=== PATIENT | female | born 1960 | race Two or more races ===

== ENCOUNTER 2021-05-21 13:05 | Emergency (ER) | payer OTHER ==
[~2021-05-21] VITALS: Ht 160 cm; Wt 62.0 kg
[2021-05-21 14:07] VITALS: BP 136/68
[2021-05-21 14:45] LABS: MEAN CORPUSCULAR HGB CONC 32.7 g/dL (33.0-36.5)
[2021-05-21 14:47] LABS: HEMATOCRIT 40.9 % (35.0-45.0); HEMOGLOBIN 13.4 g/dl (12.0-16.0); MEAN CORPUSCULAR VOLUME 85.6 FL (78-98); MEAN PLATELET VOLUME 8.5 FL (7.4-10.4); PLATELET COUNT 320 X10'3 (140-440); RED BLOOD COUNT 4.78 X10'6 (4.20-5.60); RED CELL DISTRIBUTION WIDTH 13.5 % (11.5-14.5); WHITE BLOOD COUNT 7.7 X10'3 (4.5-11.0)
[2021-05-21 15:08] LABS: ALBUMIN 3.8 G/DL (3.4-5.0); ALKALINE PHOSPHATASE 87 IU/L (46-116); ANION GAP 8 (8-16); ASPARTATE AMINO TRANSFERASE 20 U/L (10-37); BILIRUBIN,TOTAL 0.1 MG/DL (0.1-1.0); BLOOD UREA NITROGEN 7 MG/DL (7-18); BUN/CREATININE RATIO 7.7 (6.6-38.0); CALCIUM 8.5 MG/DL (8.5-10.1); CHLORIDE 107 MMOL/L (99-107); CREATININE 0.91 MG/DL (0.40-0.90); GLUCOSE 101 MG/DL (70-104); POTASSIUM 4.1 MMOL/L (3.5-5.1); SODIUM 143 MMOL/L (135-145); TOTAL CARBON DIOXIDE 28.3 MMOL/L (24-32); TOTAL PROTEIN 7.8 G/DL (6.4-8.2); eGFR 63 ML/MIN
[2021-05-21 15:19] LABS: ALANINE AMINOTRANSFERASE 22 U/L (12-78)
[2021-05-21 15:21] LABS: PLATELET ESTIMATE NORMAL; TOTAL CELLS COUNTED 100
== END 2021-05-21 18:25 | disposition home or self-care (01) ==
LOC: ER 13:06
DX: R07.89 Other chest pain (principal); M94.0 Chondrocostal junction syndrome [Tietze]
CPT/HCPCS: 36415; 71045; 80053; 83880; 84484; 85007; 85025; 93005; 99285

== ENCOUNTER 2021-05-27 10:39 | Outpatient (CLI) | payer OTHER | END 2021-05-27 23:59 | disposition home or self-care (01) | LOC: U 10:39 | PROVIDERS: ATTEND Internal Medicine Infectious Disease | DX: Z20.822 Contact with and (suspected) exposure to COVID-19 (principal) | CPT/HCPCS: 36415; U0003; U0005 ==

== ENCOUNTER 2022-08-22 15:29 | Inpatient (IN) | payer MEDICAID, OTHER ==
[~2022-08-22] VITALS: Ht 161.3 cm; Wt 77.7 kg
[2022-08-22] VITALS (23 sets, daily range): BP systolic 70–139; BP diastolic 34–77
[2022-08-22 17:23] LABS: BASOPHILS # (AUTO) 0.1 X10'3 (0-0.2); BASOPHILS % (AUTO) 0.2 % (0-1); EOSINOPHILS # (AUTO) 0.2 X10'3 (0-0.9); EOSINOPHILS % (AUTO) 0.5 % (0-6); HEMOGLOBIN 12.4 g/dl (12.0-16.0); LYMPHOCYTES # (AUTO) 0.6 X10'3 (1.1-4.8); LYMPHOCYTES % (AUTO) 1.5 % (21-51); MEAN CORPUSCULAR HEMOGLOBIN 27.9 PG (27.0-31.0); MEAN CORPUSCULAR HGB CONC 32.6 g/dL (33.0-36.5); MEAN CORPUSCULAR VOLUME 85.5 FL (78-98); MEAN PLATELET VOLUME 10.1 FL (7.4-10.4); MONOCYTES # (AUTO) 1.5 X10'3 (0-0.9); MONOCYTES % (AUTO) 3.5 % (2-12); NEUTROPHILS % (AUTO) 94.3 % (42-75); PLATELET COUNT 128 X10'3 (140-440); RED BLOOD COUNT 4.44 X10'6 (4.20-5.60); RED CELL DISTRIBUTION WIDTH 13.5 % (11.5-14.5)
[2022-08-22 17:26] LABS: WHITE BLOOD COUNT 42.4 X10'3 (4.5-11.0)
[2022-08-22] MEDS ORDERED: normal saline 1000ML IV soln IV ONE (17:30)
[2022-08-22 17:34] LABS: ALANINE AMINOTRANSFERASE 31 U/L (12-78); ALBUMIN 2.7 G/DL (3.4-5.0); ALBUMIN/GLOBULIN RATIO 0.6 (1.1-1.5); ALKALINE PHOSPHATASE 114 IU/L (46-116); ANION GAP 13 (8-16); ASPARTATE AMINO TRANSFERASE 43 U/L (10-37); BILIRUBIN,TOTAL 0.6 MG/DL (0.1-1.0); BLOOD UREA NITROGEN 41 MG/DL (7-18); BUN/CREATININE RATIO 9.3 (6.6-38.0); CALCIUM 8.2 MG/DL (8.5-10.1); CHLORIDE 98 MMOL/L (99-107); CREATININE 4.43 MG/DL (0.40-0.90); GLUCOSE 105 MG/DL (70-104); POTASSIUM 3.8 MMOL/L (3.5-5.1); SODIUM 136 MMOL/L (135-145); TOTAL CARBON DIOXIDE 25.1 MMOL/L (24-32); TOTAL PROTEIN 7.1 G/DL (6.4-8.2); eGFR 10 ML/MIN
[2022-08-22] MEDS ORDERED: ondansetron/PF 4mg/2ml inj IV ONE (17:40)
[2022-08-22 17:43] LABS: TOTAL CELLS COUNTED 100
[2022-08-22 17:45] LABS: PLATELET ESTIMATE DECREASED
[2022-08-22] MEDS: morphine 4 MG/ML inj SYRINge IV ONE ×2 (17:55→18:09)
[2022-08-22] MEDS ORDERED: CefTRIAXone 2gm/D5W 50ml BAG 50 ML IV ONE (17:55)
[2022-08-22] MEDS ORDERED: iohexol 300 MG/1 ML 50ml polymer ONE (18:49)
[2022-08-22] MEDS ORDERED: fentaNYL/PF 50MCG/1 ML 2ML syringe ONE (19:05)
[2022-08-22] MEDS ORDERED: midazolam 1 mg/ML 2ml injection ONE (19:05)
[2022-08-22] MEDS ORDERED: rocuronium 10mg/ml inj IV ONE (19:16)
[2022-08-22] MEDS ORDERED: etomidate 2mg/ml inj. ONE (19:16)
[2022-08-22] MEDS ORDERED: LIDOcaine 2% (20mg/ml) 5ml vial ONE (19:16)
[2022-08-22] MEDS ORDERED: sugammadex 200mg/2ml injection IV ONE (19:30)
[2022-08-22] MEDS ORDERED: ondansetron/PF 4mg/2ml inj ONE (19:37)
[2022-08-22] MEDS ORDERED: dexamethasone sod phosphate 4mg/ml inj. ONE (19:37)
[2022-08-22] MEDS ORDERED: meperidine/PF 25mg/ml syringe ONE (19:43)
[2022-08-22] MEDS ORDERED: meperidine/PF 25mg/ml syringe IV PRN ×3 (19:50)
[2022-08-22] MEDS ORDERED: acetaminophen 1,000mg/100ml IV 100 ML IV ONE (19:50)
[2022-08-22] MEDS ORDERED: morphine 4 MG/ML inj SYRINge IV PRN (19:50)
[2022-08-22] MEDS ORDERED: ondansetron/PF 4mg/2ml inj IV PRN (19:50)
[2022-08-22] MEDS ORDERED: ringers solution, lacted 1,000 ML IV SCH (19:50)
[2022-08-22] MEDS ORDERED: proCHLORperazine 10 MG/2 ml inj IV PRN (19:50)
[2022-08-22] MEDS ORDERED: morphine 2 MG/ML inj. syringe IV PRN (19:50)
[2022-08-22] MEDS ORDERED: potassium Cl 40MEQ/1/2NS 520ml 520 ML IV PRN (20:05)
[2022-08-22] MEDS ORDERED: potassium Cl 20 mEq SR tablet PO PRN (20:05)
[2022-08-22] MEDS ORDERED: magnesium 4gm in 100ml NS 100 ML IV PRN (20:05)
[2022-08-22] MEDS ORDERED: acetaminophen 325mg tablet PO PRN (20:05)
[2022-08-22] MEDS ORDERED: mag hydrox/Alum hydrox/simeth 30ml oral suspension PO PRN (20:05)
[2022-08-22] MEDS ORDERED: magnesium hydroxide 30ml (MOM) UD suspension PO PRN (20:05)
--- NOTE | 2022-08-22 20:08 | NUR ---
Received from OR via BED, accompanied by Anesthesiologist DR KENDRICK and report given by Anesthesiologist AND STEP DOWN NURSE. PT DROWSY AND MOANING, SHIVERING, 25 MG IV DEMEROL GIVEN PER DR KENDRICK ORDERS W/IMPROVEMENT IN SHIVERING, PT AWAKENS TO NAME, DENIES PAIN. Addendum: 08/22/22 at 2015 by Shital Arroyo RN Amended: Links added.
--- NOTE | 2022-08-22 20:50 | NUR ---
Patient arrived to room 356B after I had received report from Shital MOLINA from the recovery room.
--- NOTE | 2022-08-22 20:53 | NUR ---
Report called to receiving nurse. Transferred via BED W/2 BAGS OF Belongings, RECEIVING RN AT BEDSIDE TO RECEIVE PT, BLL, CALL LIGHT GIVEN, SIDE RAILS UP X 2. Special Issues communicated to receiving nurse. YES. Addendum: 08/22/22 at 2102 by Shital Arroyo RN Amended: Links added.
[2022-08-22] MEDS: normal saline 1000ml 1,000 ML IV SCH (21:10)
[2022-08-22] MEDS: HYDROmorphone inj. 0.5 MG/0.5 ML DISP.SYRIN IV PRN (22:43)
[2022-08-22] MEDS ORDERED: normal saline 1000ml 1,000 ML IVB ONE (23:05)
[2022-08-22] MEDS ORDERED: TRAM50TA2 PO (23:40)
[2022-08-22] MEDS ORDERED: AMLO10TA13 PO (23:40)
[2022-08-23] VITALS (18 sets, daily range): BP systolic 67–108; BP diastolic 35–50
[2022-08-23] MEDS: normal saline 1000ml 1,000 ML IV SCH ×5 (00:08→21:12)
--- NOTE | 2022-08-23 01:00 | NUR ---
I had notified Dr. Martin a couple of times that pt had not voided yet and informed him of how much fluid she had infused.
--- NOTE | 2022-08-23 01:30 | NUR ---
Spoke to Dr. Martin again regarding pt's low b/p and not responding to fluid boluses, we did manual b/p on the right and left per Dr. Martin's request and the map was still <60 so he gave orders to infuse another 1 liter saline bolus and then he is going to write orders to transfer her to PCU for special medication to keep her b/p up.
[2022-08-23] MEDS ORDERED: normal saline 1000ml 1,000 ML IVB ONE ×3 (01:40→11:30)
[2022-08-23] MEDS ORDERED: DOBUTamine-DoBUTrex 500mg/D5W 250 ML IV SCH (01:50)
--- NOTE | 2022-08-23 02:02 | NUR ---
no void yet Addendum: 08/23/22 at 0221 by Mariposa Cochran RN Amended: Links added.
--- NOTE | 2022-08-23 02:10 | NUR ---
Transferred to U 3027A due to low blood pressure and needing special medication to keep her b/p up. I gave report over the phone to Laura Martines RN. Patient remained fatigued but no shortness of breath and heart rate in the low 100's, 105-107 and is on tele unit being monitored. All her belongings went with patient in bags and left in the room in the closet in 3027A and I left her purse with phone in the bed with pt per her request.
--- NOTE | 2022-08-23 02:20 | NUR ---
Bedside report from Mariposa Martines RN
--- NOTE | 2022-08-23 03:43 | NUR ---
manual pressure left arm-68/38, retook bp 70/40. MD Martin contacted for further orders by specialty molder.
--- NOTE | 2022-08-23 05:11 | NUR ---
3029I-VTIO MANZANARES-GFR 10, CREATININE 4.43-MANUAL 74/38, BLADDER SCAN 217 ML-PLEASE ADVISE. JOB [id number]
--- NOTE | 2022-08-23 06:32 | NUR ---
Problems reprioritized. Patient report given, questions answered & plan of care reviewed with Rebecca MOLINA.
--- NOTE | 2022-08-23 06:36 | NUR ---
Patient in room PCU 3027. I have received report from JESSE Alvares and had the opportunity to ask questions and assume patient care.
[2022-08-23 06:40] LABS: BASOPHILS # (AUTO) 0.1 X10'3 (0-0.2); BASOPHILS % (AUTO) 0.2 % (0-1); EOSINOPHILS # (AUTO) 0.1 X10'3 (0-0.9); EOSINOPHILS % (AUTO) 0.4 % (0-6); HEMATOCRIT 30.3 % (35.0-45.0); HEMOGLOBIN 9.9 g/dl (12.0-16.0); LYMPHOCYTES # (AUTO) 0.3 X10'3 (1.1-4.8); LYMPHOCYTES % (AUTO) 0.8 % (21-51); MEAN CORPUSCULAR HEMOGLOBIN 28.2 PG (27.0-31.0); MEAN CORPUSCULAR HGB CONC 32.6 g/dL (33.0-36.5); MEAN CORPUSCULAR VOLUME 86.7 FL (78-98); MEAN PLATELET VOLUME 10.9 FL (7.4-10.4); MONOCYTES # (AUTO) 0.6 X10'3 (0-0.9); MONOCYTES % (AUTO) 1.7 % (2-12); NEUTROPHILS % (AUTO) 96.9 % (42-75); PLATELET COUNT 66 X10'3 (140-440); RED CELL DISTRIBUTION WIDTH 13.5 % (11.5-14.5)
--- NOTE | 2022-08-23 06:40 | NUR ---
Problems reprioritized. Patient report given, questions answered & plan of care reviewed with ALICIA COSMETIC ACCOUNT COORDINATOR.
[2022-08-23 07:05] LABS: ALANINE AMINOTRANSFERASE 20 U/L (12-78); ALBUMIN 1.7 G/DL (3.4-5.0); ALBUMIN/GLOBULIN RATIO 0.5 (1.1-1.5); ALKALINE PHOSPHATASE 164 IU/L (46-116); ANION GAP 14 (8-16); ASPARTATE AMINO TRANSFERASE 39 U/L (10-37); BILIRUBIN,TOTAL 0.7 MG/DL (0.1-1.0); BLOOD UREA NITROGEN 42 MG/DL (7-18); BUN/CREATININE RATIO 11.1 (6.6-38.0); CALCIUM 6.6 MG/DL (8.5-10.1); CHLORIDE 106 MMOL/L (99-107); GLUCOSE 111 MG/DL (70-104); MAGNESIUM 1.8 MG/DL (1.5-2.4); POTASSIUM 3.1 MMOL/L (3.5-5.1); SODIUM 139 MMOL/L (135-145); TOTAL CARBON DIOXIDE 19.3 MMOL/L (24-32); eGFR 12 ML/MIN
--- NOTE | 2022-08-23 07:23 | NUR ---
Patient in room CICU 2009. I have received report from Dia MOLINA, patient transferring to CICU shortly and had the opportunity to ask questions and assume patient care.
--- NOTE | 2022-08-23 07:24 | NUR ---
Patient transferring to CICU per Dr. Bates. All belongings collected and sent with patient to 2009. Wheeled to CICU via nursing staff.
[2022-08-23 07:35] LABS: WHITE BLOOD COUNT 37.2 X10'3 (4.5-11.0)
[2022-08-23 07:39] LABS: LARGE PLATELETS FEW; PLATELET ESTIMATE DECREASED; TOTAL CELLS COUNTED 100
[2022-08-23] MEDS: K and/or MAG REPLACEMENT MC SCH ×2 (07:45→18:34)
[2022-08-23] MEDS: heparin, porcine 5000 units/ml vial SQ SCH ×2 (07:53→18:33)
[2022-08-23] MEDS: piperacillin/tazo 3.375gm/50ml 50 ML IV SCH ×2 (07:54→19:32)
[2022-08-23] MEDS: docusate sod 100mg capsule PO SCH ×2 (07:54→19:32)
[2022-08-23] MEDS: potassium Cl 20 mEq SR tablet PO PRN ×3 (07:54→19:32)
[2022-08-23] MEDS ORDERED: CefTRIAXone/D5W-Rocephin 1gm 50 ML IV SCH (08:00)
--- NOTE | 2022-08-23 12:00 | NUR ---
Round note: Dr. Bates stated to give the patient another 1L bolus of NS and then to continue the NS @ 200. Per Dr. Bates patient can transfer back to PCU with tele.
--- NOTE | 2022-08-23 13:00 | NUR ---
Problems reprioritized. Patient report given, questions answered & plan of care reviewed with JESSE Madrigal.
--- NOTE | 2022-08-23 13:55 | NUR ---
Patient transferred to room 3013 A via wheelchair with primary RN. Skin check done with receiving RN. Patient belongings (2 jackets, 2 shirts, bra, underwear, pants, shoes, purse, and cell phone) all left with patient.
[2022-08-23] MEDS: HYDROmorphone inj. 0.5 MG/0.5 ML DISP.SYRIN IV PRN (16:19)
[2022-08-23] MEDS: ondansetron/PF 4mg/2ml inj IV PRN (16:19)
--- NOTE | 2022-08-23 18:50 | NUR ---
Problems reprioritized. Patient report given, questions answered & plan of care reviewed with Jennifer Wall, patient stable at transfer of care.
[2022-08-23] MEDS: HYDROmorphone 1 mg/ml syringe IV PRN (21:13)
[2022-08-24 02:00] VITALS: BP 88/47
[2022-08-24] MEDS: normal saline 1000ml 1,000 ML IV SCH ×4 (02:05→23:39)
[2022-08-24] MEDS: HYDROmorphone 1 mg/ml syringe IV PRN (04:50)
[2022-08-24 06:00] VITALS: BP 102/58
--- NOTE | 2022-08-24 06:34 | NUR ---
Problems reprioritized. Patient report given, questions answered & plan of care reviewed with JESSE Ambrose.
--- NOTE | 2022-08-24 06:46 | NUR ---
Patient in room PCU 3013. I have received report from Jennifer Novak and had the opportunity to ask questions and assume patient care.
[2022-08-24] MEDS: docusate sod 100mg capsule PO SCH ×2 (08:00→20:00)
[2022-08-24] MEDS: heparin, porcine 5000 units/ml vial SQ SCH ×2 (08:00→20:00)
[2022-08-24] MEDS: K and/or MAG REPLACEMENT MC SCH ×2 (08:00→20:00)
[2022-08-24 09:26] LABS: BASOPHILS % (AUTO) 0.1 % (0-1); EOSINOPHILS # (AUTO) 0.4 X10'3 (0-0.9); EOSINOPHILS % (AUTO) 0.9 % (0-6); HEMATOCRIT 32.6 % (35.0-45.0); HEMOGLOBIN 10.6 g/dl (12.0-16.0); LYMPHOCYTES # (AUTO) 0.6 X10'3 (1.1-4.8); LYMPHOCYTES % (AUTO) 1.3 % (21-51); MEAN CORPUSCULAR HEMOGLOBIN 27.9 PG (27.0-31.0); MEAN CORPUSCULAR HGB CONC 32.4 g/dL (33.0-36.5); MEAN PLATELET VOLUME 11.7 FL (7.4-10.4); MONOCYTES % (AUTO) 2.4 % (2-12); NEUTROPHILS # (AUTO) 42.1 X10'3 (1.8-7.7); NEUTROPHILS % (AUTO) 95.3 % (42-75); RED BLOOD COUNT 3.79 X10'6 (4.20-5.60); RED CELL DISTRIBUTION WIDTH 13.7 % (11.5-14.5)
[2022-08-24 09:42] LABS: WHITE BLOOD COUNT 44.2 X10'3 (4.5-11.0)
[2022-08-24] MEDS: piperacillin/tazo 3.375gm/50ml 50 ML IV SCH (09:49)
[2022-08-24 09:53] LABS: ALANINE AMINOTRANSFERASE 22 U/L (12-78); ALBUMIN 1.7 G/DL (3.4-5.0); ALBUMIN/GLOBULIN RATIO 0.5 (1.1-1.5); ALKALINE PHOSPHATASE 136 IU/L (46-116); ANION GAP 9 (8-16); ASPARTATE AMINO TRANSFERASE 30 U/L (10-37); BILIRUBIN,TOTAL 0.4 MG/DL (0.1-1.0); BLOOD UREA NITROGEN 35 MG/DL (7-18); BUN/CREATININE RATIO 18.5 (6.6-38.0); CALCIUM 7.8 MG/DL (8.5-10.1); CHLORIDE 114 MMOL/L (99-107); CREATININE 1.89 MG/DL (0.40-0.90); GLUCOSE 95 MG/DL (70-104); MAGNESIUM 1.9 MG/DL (1.5-2.4); POTASSIUM 4.1 MMOL/L (3.5-5.1); SODIUM 143 MMOL/L (135-145); TOTAL CARBON DIOXIDE 19.8 MMOL/L (24-32); TOTAL PROTEIN 5.3 G/DL (6.4-8.2); eGFR 27 ML/MIN
[2022-08-24 10:08] LABS: PLATELET COUNT 57 X10'3 (140-440)
[2022-08-24 10:10] LABS: PLATELET ESTIMATE DECREASED; TOTAL CELLS COUNTED 100; TOXIC GRANULATION 1+
[2022-08-24 10:30] VITALS: BP 110/61
--- NOTE | 2022-08-24 12:59 | NUR ---
PAGER ID: [phone] MESSAGE: Re: Ricky in [id number], pt requesting ultram, not dilaudid and PT requesting new order to see her, please advise Halie [phone]
[2022-08-24] MEDS: ondansetron/PF 4mg/2ml inj IV PRN ×2 (13:30→20:53)
[2022-08-24 14:00] VITALS: BP 106/57
[2022-08-24] MEDS: meropenem inj 1 GM in normal saline 100ml IV soln 100 ML IV SCH (16:02)
--- NOTE | 2022-08-24 16:16 | NUR ---
Student documentation: I have reviewed and agree with all interventions, medication administration per hospital policy and assessments performed and documented by .
[2022-08-24 18:00] VITALS: BP 112/53
--- NOTE | 2022-08-24 18:24 | NUR ---
Problems reprioritized. Patient report given, questions answered & plan of care reviewed with Leslye Motta
[2022-08-24] MEDS ORDERED: loperamide 2mg capsule PO PRN (19:55)
[2022-08-24] MEDS: traMADol 50MG tablet PO PRN (20:52)
[2022-08-24 22:00] VITALS: BP 110/56
[2022-08-25] MEDS: meropenem inj 1 GM in normal saline 100ml IV soln 100 ML IV SCH ×3 (01:01→16:33)
[2022-08-25 02:00] VITALS: BP 111/60
[2022-08-25 06:00] VITALS: BP 130/67
[2022-08-25 06:53] LABS: BASOPHILS # (AUTO) 0.1 X10'3 (0-0.2); BASOPHILS % (AUTO) 0.4 % (0-1); EOSINOPHILS % (AUTO) 0.1 % (0-6); HEMATOCRIT 34.1 % (35.0-45.0); HEMOGLOBIN 11.1 g/dl (12.0-16.0); LYMPHOCYTES # (AUTO) 0.8 X10'3 (1.1-4.8); LYMPHOCYTES % (AUTO) 2.4 % (21-51); MEAN CORPUSCULAR HEMOGLOBIN 27.7 PG (27.0-31.0); MEAN CORPUSCULAR HGB CONC 32.5 g/dL (33.0-36.5); MEAN CORPUSCULAR VOLUME 85.3 FL (78-98); MEAN PLATELET VOLUME 10.2 FL (7.4-10.4); MONOCYTES # (AUTO) 1.4 X10'3 (0-0.9); MONOCYTES % (AUTO) 4.4 % (2-12); NEUTROPHILS # (AUTO) 29.7 X10'3 (1.8-7.7); NEUTROPHILS % (AUTO) 92.7 % (42-75); RED CELL DISTRIBUTION WIDTH 13.9 % (11.5-14.5)
[2022-08-25 07:08] LABS: ALANINE AMINOTRANSFERASE 25 U/L (12-78); ALBUMIN 1.6 G/DL (3.4-5.0); ALBUMIN/GLOBULIN RATIO 0.5 (1.1-1.5); ALKALINE PHOSPHATASE 172 IU/L (46-116); ANION GAP 11 (8-16); ASPARTATE AMINO TRANSFERASE 31 U/L (10-37); BILIRUBIN,TOTAL 0.6 MG/DL (0.1-1.0); BLOOD UREA NITROGEN 25 MG/DL (7-18); BUN/CREATININE RATIO 18.4 (6.6-38.0); CALCIUM 7.8 MG/DL (8.5-10.1); CHLORIDE 110 MMOL/L (99-107); CREATININE 1.36 MG/DL (0.40-0.90); GLUCOSE 77 MG/DL (70-104); MAGNESIUM 1.9 MG/DL (1.5-2.4); POTASSIUM 3.4 MMOL/L (3.5-5.1); SODIUM 140 MMOL/L (135-145); TOTAL CARBON DIOXIDE 19.2 MMOL/L (24-32); eGFR 39 ML/MIN
[2022-08-25 07:11] LABS: WHITE BLOOD COUNT 32.1 X10'3 (4.5-11.0)
[2022-08-25 07:12] LABS: PLATELET COUNT 45 X10'3 (140-440)
--- NOTE | 2022-08-25 07:36 | NUR ---
Patient in room PCU 3013. I have received report from Rajeev and had the opportunity to ask questions and assume patient care.
[2022-08-25 07:44] LABS: LARGE PLATELETS FEW; PLATELET ESTIMATE DECREASED
[2022-08-25] MEDS: docusate sod 100mg capsule PO SCH ×2 (08:00→20:00)
[2022-08-25] MEDS: heparin, porcine 5000 units/ml vial SQ SCH ×2 (08:00→20:00)
[2022-08-25] MEDS: K and/or MAG REPLACEMENT MC SCH ×2 (08:00→20:00)
--- NOTE | 2022-08-25 08:06 | NUR ---
PAGER ID: [phone] MESSAGE: RE: Ricky 3013A, plt 45, WBC 32.1, amara Ambrose
[2022-08-25] MEDS: traMADol 50MG tablet PO PRN ×3 (08:44→22:30)
[2022-08-25] MEDS: potassium Cl 20 mEq SR tablet PO PRN ×3 (08:44→16:58)
[2022-08-25] MEDS: normal saline 1000ml 1,000 ML IV SCH ×2 (08:44→21:04)
[2022-08-25 10:30] VITALS: BP 114/68
[2022-08-25 15:39] LABS: CLARITY,URINE CLOUDY (Clear); GLUCOSE, URINE NEGATIVE (Neg); KETONES,URINE 15 mg/dl (Neg); LEUKOCYTE ESTERASE ,URINE SMALL (Neg); NITRITES, URINE NEGATIVE (Neg); OCCULT BLOOD,URINE LARGE (Neg); PROTEIN,URINE 30 mg/dl (Neg); UROBILINOGEN,URINE 0.2 E.U/dL (0.2-1.0)
[2022-08-25 15:57] LABS: UA COLLECTION TYPE CLN CATCH MIDSTREAM
[2022-08-25 15:58] LABS: COLOR,URINE DARK YELLOW (Yellow)
[2022-08-25 16:00] LABS: BACTERIA,URINE FEW /HPF (Neg); RBC,URINE TNTC /HPF (0-2); SQUAMOUS EPITHELIAL CELL,UR FEW /LPF (FEW); WBC CLUMPS,URINE FEW /HPF (NEGATIVE)
[2022-08-25 18:00] VITALS: BP 122/58
--- NOTE | 2022-08-25 18:43 | NUR ---
Problems reprioritized. Patient report given, questions answered & plan of care reviewed with Jennifer Villarreal
[2022-08-25 22:00] VITALS: BP 115/61
[2022-08-26] MEDS: ceFAZolin/D5W- 1GM premix 50 ML IV SCH ×3 (01:27→16:42)
[2022-08-26 02:00] VITALS: BP 114/60
[2022-08-26] MEDS: normal saline 1000ml 1,000 ML IV SCH ×2 (05:39→15:39)
[2022-08-26 06:00] VITALS: BP 103/49
[2022-08-26 06:36] LABS: BASOPHILS % (AUTO) 0.1 % (0-1); EOSINOPHILS # (AUTO) 0.2 X10'3 (0-0.9); EOSINOPHILS % (AUTO) 0.7 % (0-6); HEMATOCRIT 33.6 % (35.0-45.0); HEMOGLOBIN 11.2 g/dl (12.0-16.0); LYMPHOCYTES % (AUTO) 4.3 % (21-51); MEAN CORPUSCULAR HEMOGLOBIN 27.9 PG (27.0-31.0); MEAN CORPUSCULAR HGB CONC 33.3 g/dL (33.0-36.5); MEAN CORPUSCULAR VOLUME 83.9 FL (78-98); MEAN PLATELET VOLUME 9.7 FL (7.4-10.4); MONOCYTES # (AUTO) 2.1 X10'3 (0-0.9); MONOCYTES % (AUTO) 8.7 % (2-12); NEUTROPHILS # (AUTO) 20.8 X10'3 (1.8-7.7); NEUTROPHILS % (AUTO) 86.2 % (42-75); RED BLOOD COUNT 4.01 X10'6 (4.20-5.60); RED CELL DISTRIBUTION WIDTH 13.9 % (11.5-14.5); WHITE BLOOD COUNT 24.1 X10'3 (4.5-11.0)
[2022-08-26 06:43] LABS: PLATELET COUNT 40 X10'3 (140-440)
--- NOTE | 2022-08-26 06:47 | NUR ---
Mrs García has critical Plt of 40. I called Night MD at [phone] attempted to leave message and it was full. I will inform Day MD MANNING. Pt is A/O X3 in no apparent distress and in bed locked, lowered with call light in reach. Will continue to monitor. I received report from JESSE Rodriguez.
[2022-08-26 06:51] LABS: ALANINE AMINOTRANSFERASE 21 U/L (12-78); ALBUMIN 1.4 G/DL (3.4-5.0); ALBUMIN/GLOBULIN RATIO 0.4 (1.1-1.5); ALKALINE PHOSPHATASE 126 IU/L (46-116); ANION GAP 5 (8-16); ASPARTATE AMINO TRANSFERASE 24 U/L (10-37); BILIRUBIN,TOTAL 0.5 MG/DL (0.1-1.0); BLOOD UREA NITROGEN 19 MG/DL (7-18); BUN/CREATININE RATIO 17.8 (6.6-38.0); CALCIUM 7.7 MG/DL (8.5-10.1); CHLORIDE 110 MMOL/L (99-107); CREATININE 1.07 MG/DL (0.40-0.90); GLUCOSE 95 MG/DL (70-104); MAGNESIUM 1.5 MG/DL (1.5-2.4); POTASSIUM 3.8 MMOL/L (3.5-5.1); SODIUM 137 MMOL/L (135-145); TOTAL CARBON DIOXIDE 21.8 MMOL/L (24-32); TOTAL PROTEIN 4.7 G/DL (6.4-8.2); eGFR 52 ML/MIN
--- NOTE | 2022-08-26 07:49 | NUR ---
messaged PAGER ID: [phone] MESSAGE: KATHERIN RM. [id number] Ricky, Critical PLT 40 trending down from 45. Heparin will be held Jemima MOLINA PCU [id number]
[2022-08-26] MEDS ORDERED: meropenem inj 1 GM in normal saline 100ml IV soln 100 ML IV SCH (08:00)
[2022-08-26] MEDS: docusate sod 100mg capsule PO SCH ×2 (08:00→19:31)
[2022-08-26] MEDS: K and/or MAG REPLACEMENT MC SCH ×2 (08:00→19:08)
[2022-08-26 08:02] VITALS: BP 103/49
[2022-08-26] MEDS: traMADol 50MG tablet PO PRN ×2 (12:12→21:07)
[2022-08-26] MEDS: fondaparinux 2.5 MG/0.5 ML syringe SUBCUT SCH (14:15)
[2022-08-26 18:00] VITALS: BP 121/62
[2022-08-26] MEDS: ondansetron/PF 4mg/2ml inj IV PRN (20:29)
[2022-08-26 22:00] VITALS: BP 111/51
[2022-08-27] MEDS: ceFAZolin/D5W- 1GM premix 50 ML IV SCH ×3 (00:08→16:54)
[2022-08-27] MEDS: normal saline 1000ml 1,000 ML IV SCH ×3 (00:13→16:59)
[2022-08-27 06:00] VITALS: BP 134/50
[2022-08-27 07:24] LABS: BASOPHILS % (AUTO) 0.1 % (0-1); EOSINOPHILS # (AUTO) 0.3 X10'3 (0-0.9); EOSINOPHILS % (AUTO) 1.4 % (0-6); HEMATOCRIT 30.8 % (35.0-45.0); HEMOGLOBIN 10.2 g/dl (12.0-16.0); LYMPHOCYTES # (AUTO) 1.3 X10'3 (1.1-4.8); LYMPHOCYTES % (AUTO) 5.5 % (21-51); MEAN CORPUSCULAR HEMOGLOBIN 27.8 PG (27.0-31.0); MEAN CORPUSCULAR VOLUME 84.3 FL (78-98); MEAN PLATELET VOLUME 10.3 FL (7.4-10.4); MONOCYTES % (AUTO) 8.3 % (2-12); NEUTROPHILS # (AUTO) 20.4 X10'3 (1.8-7.7); NEUTROPHILS % (AUTO) 84.7 % (42-75); PLATELET COUNT 63 X10'3 (140-440); RED BLOOD COUNT 3.66 X10'6 (4.20-5.60); RED CELL DISTRIBUTION WIDTH 13.4 % (11.5-14.5); WHITE BLOOD COUNT 24.1 X10'3 (4.5-11.0)
[2022-08-27 07:39] LABS: ALANINE AMINOTRANSFERASE 18 U/L (12-78); ALBUMIN 1.5 G/DL (3.4-5.0); ALBUMIN/GLOBULIN RATIO 0.5 (1.1-1.5); ALKALINE PHOSPHATASE 117 IU/L (46-116); ANION GAP 6 (8-16); ASPARTATE AMINO TRANSFERASE 30 U/L (10-37); BILIRUBIN,TOTAL 0.5 MG/DL (0.1-1.0); BLOOD UREA NITROGEN 15 MG/DL (7-18); CALCIUM 7.6 MG/DL (8.5-10.1); CHLORIDE 108 MMOL/L (99-107); GLUCOSE 122 MG/DL (70-104); MAGNESIUM 1.6 MG/DL (1.5-2.4); POTASSIUM 3.4 MMOL/L (3.5-5.1); SODIUM 139 MMOL/L (135-145); TOTAL CARBON DIOXIDE 25.3 MMOL/L (24-32); TOTAL PROTEIN 4.7 G/DL (6.4-8.2); eGFR 56 ML/MIN
[2022-08-27] MEDS: docusate sod 100mg capsule PO SCH ×2 (08:00→19:39)
[2022-08-27] MEDS: K and/or MAG REPLACEMENT MC SCH ×2 (08:00→19:39)
[2022-08-27 08:11] LABS: ANISOCYTOSIS 1+; PLATELET ESTIMATE DECREASED; TOTAL CELLS COUNTED 100
--- NOTE | 2022-08-27 08:16 | NUR ---
Initial: Pt admitted w/ septic shock secondary to pyelonephritis per EMR. Currently on Sodium Restricted diet w/ mostly 0-25% intake of meals not meeting needs. Recommend liberalizing to Regular diet. Will also recommend Ensure Enlive TID for additional calories and protein. LBM 08/24 receiving routine colace. Will continue to monitor. Recs; 1. Liberalize to Regular diet 2. Ensure Enlive TID; pending MD verification 3. Bowel care per rx 4. Weekly wts Addendum: 08/27/22 at [address] Amended: Links added.
[2022-08-27] MEDS: fondaparinux 2.5 MG/0.5 ML syringe SUBCUT SCH (08:30)
[2022-08-27] MEDS: traMADol 50MG tablet PO PRN ×3 (08:36→20:42)
[2022-08-27 10:00] VITALS: BP 124/56
[2022-08-27] MEDS: lactose-reduced food (Ensure Enlive) - 237ml bottle PO SCH ×2 (13:04→18:34)
[2022-08-27 18:00] VITALS: BP 115/52
[2022-08-27] MEDS ORDERED: potassium Cl 40MEQ/1/2NS 520ml 520 ML IV PRN (19:40)
[2022-08-27] MEDS ORDERED: magnesium Cl slow-release 64mg tablet PO PRN (19:40)
[2022-08-27] MEDS ORDERED: magnesium 4gm in 100ml NS 100 ML IV PRN (19:40)
[2022-08-27] MEDS ORDERED: potassium Cl 20 mEq SR tablet PO PRN ×2 (19:40)
[2022-08-27 22:00] VITALS: BP 120/44
[2022-08-27] MEDS: cefazolin/dext.iso 2gm/100ml 100 ML IV SCH (23:44)
[2022-08-28 06:00] VITALS: BP 117/55
--- NOTE | 2022-08-28 06:34 | NUR ---
Patient in room PCU 3013. I have received report from JESSE Rodriguez and had the opportunity to ask questions and assume patient care.
[2022-08-28] MEDS: lactose-reduced food (Ensure Enlive) - 237ml bottle PO SCH ×2 (08:00→13:00)
[2022-08-28] MEDS: docusate sod 100mg capsule PO SCH (08:00)
[2022-08-28] MEDS: K and/or MAG REPLACEMENT MC SCH (08:00)
[2022-08-28] MEDS: fondaparinux 2.5 MG/0.5 ML syringe SUBCUT SCH (09:15)
[2022-08-28] MEDS: traMADol 50MG tablet PO PRN (09:15)
[2022-08-28] MEDS: cefazolin/dext.iso 2gm/100ml 100 ML IV SCH ×2 (09:16→12:00)
[2022-08-28] MEDS: normal saline 1000ml 1,000 ML IV SCH (12:52)
--- NOTE | 2022-08-28 17:24 | NUR ---
Pt discharged in stable condition via wheelchair to family waiting in [facility]. Tele and IV discontinued. Pt left with midline intact and follow up instructions. All education and discharge instructions reviewed with pt and family. Pt states she is missing her clothing and shoes. glass bead maker made aware. Searched unit lost and found, called ICU, and had housekeeping search main lost and found with no success. Pt states she did not have someone take her clothing home. Pt discharged with gown, scrub pants, and grippy socks.
[2022-08-28] MEDS ORDERED: cefazolin/dext.iso 2gm/100ml 100 ML IV SCH (20:00)
== END 2022-08-28 17:22 | disposition home or self-care (01) | DRG 720 ==
LOC: ER 15:30 → ED HOLD 20:11 → SUR 3N 20:49 → PCU 3S 08-23 02:20 → CICU 2S 08-23 07:13 → PCU 3S 08-23 13:40
PROVIDERS: ADMIT Family Medicine; ATTEND Family Medicine
PROC: BT1F1ZZ Fluoroscopy of Left Kidney, Ureter and Bladder using Low Osmolar Contrast (ICD-10-PCS; 2022-08-22)
PROC: 0T778DZ Dilation of Left Ureter with Intraluminal Device, Via Natural or Artificial Opening Endoscopic (ICD-10-PCS; principal; 2022-08-22 19:06)
PROC: 05HY33Z Insertion of Infusion Device into Upper Vein, Percutaneous Approach (ICD-10-PCS; 2022-08-28)
DX: A41.51 Sepsis due to Escherichia coli [E. coli] (principal); N17.0 Acute kidney failure with tubular necrosis; R65.21 Severe sepsis with septic shock; D69.6 Thrombocytopenia, unspecified; E87.6 Hypokalemia; Z20.822 Contact with and (suspected) exposure to COVID-19; F17.210 Nicotine dependence, cigarettes, uncomplicated; G89.4 Chronic pain syndrome; Z60.2 Problems related to living alone; I10 Essential (primary) hypertension; D72.823 Leukemoid reaction; N13.6 Pyonephrosis; N36.8 Other specified disorders of urethra; N99.3 Prolapse of vaginal vault after hysterectomy; Z53.20 Procedure and treatment not carried out because of patient's decision for unspecified reasons; D72.825 Bandemia; M54.50 Low back pain, unspecified; Z79.899 Other long term (current) drug therapy; Z71.6 Tobacco abuse counseling
CPT/HCPCS: 36410; 36415; 74176; 76770; 76942; 80053; 81001; 83605; 83735; 84145; 85007; 85008; 85025; 87040; 87077; 87081; 87088; 87186; 87811; 93005; 97110; 97116; 97161; 97530; 97535; 99285; A4615; A4618; C1751; C1758; C1769; C2617; G0378; J0131; J0690; J0696; J1100; J1170; J1250; J1652; J2175; J2185; J2250; J2270; J2405; J2543; J3010; J3490; J7030; Q9967